=== PATIENT | female | born 1960 | race Hispanic/Latino ===

== ENCOUNTER 2017-11-27 22:09 | Inpatient (IN) | payer OTHER ==
[~2017-11-27] VITALS: Ht 149.9 cm; Wt 38.1 kg
[~2017-11-27 22:09] MED LIST: CLONIDINE HCL0.1 MG PO; EPINEPHRINE HCL SYRINGE ONE; FERROUS SULFAT325 MG PO; FUROSEMIDE40 MG PO; GLIPIZIDE5 MG PO; LANTUS100 UNITS/ SQ; LEVOTHYROXINE75 MCG PO; LISINOPRIL10 MG PO; METOPROLOL SUCC25 MG PO; POTASSIUM CHLO20 ME1 PO; PRAVASTATIN SOD20 MG PO; SODIUM BICARBONATE 8.4% INJ 50 ML SYR ONE; SODIUM CHLORIDE 0.9% 1000 ML BAG ONE; ULTRAM 50MG50 MG PO
[2017-11-27] MEDS ORDERED: PANTOPRAZOLE 40 MG 10ML VIAL IV STA (22:32)
[2017-11-27] MEDS ORDERED: SODIUM CHLORIDE 0.9% 1000ML 1,000 ML IV STA (22:32)
[2017-11-27 22:57] LABS: BASOPHILS % 0.1 % (0.0-1.0); EOSINOPHILS % 0.1 % (0.0-6.0); HEMATOCRIT 29.9 % (34.2-44.1); HEMOGLOBIN 9.5 g/dL (12.0-16.0); LYMPHOCYTES # (AUTO) 6.1 (1.0-3.2); LYMPHOCYTES % 33.8 % (18.0-39.1); MEAN CORPUSCULAR HEMOGLOBIN 30.4 pg (28-32); MEAN CORPUSCULAR HGB CONC 31.8 g/dL (31-35); MEAN CORPUSCULAR VOLUME 95.5 fL (81-99); MONOCYTES # (AUTO) 0.8 (0.2-0.8); MONOCYTES % 4.2 % (4.4-11.3); NEUTROPHILS % 61.1 % (38.7-80.0); PLATELET COUNT 214 x10e3/uL (140-360); RED BLOOD COUNT 3.13 x10e6/uL (3.6-5.1)
[2017-11-27 23:07] LABS: INR 1.42; PROTHROMBIN TIME 16.3 seconds (11.9-14.5)
[2017-11-27 23:08] LABS: PARTIAL THROMBOPLASTIN TIME 53.3 seconds (23.8-35.5)
[2017-11-27 23:19] LABS: ALANINE AMINOTRANSFERASE 404 IU/L (0-55); ALBUMIN 2.1 g/dL (3.5-5.0); ALBUMIN/GLOBULIN RATIO 0.4 (0.8-2.0); ALKALINE PHOSPHATASE 576 IU/L (40-150); AMYLASE 26 U/L (25-125); BLOOD UREA NITROGEN 7 mg/dL (7-26); BUN/CREATININE RATIO 10 (6-25); CALCIUM 8.5 mg/dL (8.4-10.2); CARBON DIOXIDE 25 mmol/L (22-29); CHLORIDE 99 mmol/L (98-107); CREATINE KINASE 33 IU/L (29-168); CREATININE, SERUM 0.73 mg/dL (0.57-1.11); EST GLOMERULAR FILTRATION RATE > 60 ML/MIN (60-); GLUCOSE 118 mg/dL (74-118); LIPASE 13 U/L (8-78); MAGNESIUM 1.6 MG/DL (1.3-2.1); SODIUM 136 mmol/L (136-145)
[2017-11-27 23:31] LABS: THYROID STIMULATING HORMONE 22.865 uIU/mL (0.350-4.940)
[2017-11-27 23:40] LABS: ANISOCYTOSIS SLIGHT; BAND NEUTROPHILS % (MANUAL) 4 %; LYMPHOCYTES % (MANUAL) 26 % (19-48); MONOCYTES % (MANUAL) 4 % (3.4-9.0); NEUTROPHILS % (MANUAL) 66 % (40-74); PLATELET ESTIMATE ADEQUATE; RBC MORPHOLOGY COMMENT NORMAL
[2017-11-27 23:41] LABS: PLATELET MORPHOLOGY COMMENT FEW LARGE
[2017-11-27 23:48] LABS: B-TYPE NATRIURETIC PEPTIDE2 1402.6 pg/mL (0-100)
[2017-11-27] MEDS ORDERED: CEFEPIME HCL 2 GM VIAL IV STA (23:56)
[2017-11-27] MEDS ORDERED: PIPERACILLIN/TAZO 2.25 GM 50 ML IV STA (23:56)
[2017-11-28] VITALS (69 sets, daily range): BP systolic 109–157; BP diastolic 63–100
--- NOTE | 2017-11-28 01:22 | Diagnostic Imaging Report ---
EXAMINATION: CHEST SINGLE (PORTABLE) INDICATION: Intubated. COMPARISON: 01/07/2016 FINDINGS: TUBES and LINES: Tracheostomy tube, pacemaker and right IJ dual-lumen dialysis catheter are present. LUNGS: Confluent airspace disease in the right hemithorax with air bronchogram. There are bibasilar atelectasis. There is perihilar interstital opacities, consistent with interstitial edema. PLEURA: Small bilateral pleural effusions. HEART AND MEDIASTINUM: The cardiomediastinal silhouette is unremarkable. BONES AND SOFT TISSUES: No acute osseous lesion. Soft tissues are unremarkable. UPPER ABDOMEN: No free air under the diaphragm. IMPRESSION: 1. Findings are compatible with multifocal infection predominantly involving the right hemithorax. 2. Fluid overload. Signed by: Dr. Zana Pollard M.D. on 11/28/2017 1:19 AM
[2017-11-28] MEDS: VANCOMYCIN 1GM/NS 250 ML 250 ML IV STA ×2 (01:29→01:30)
--- NOTE | 2017-11-28 01:49 | Diagnostic Imaging Report ---
EXAMINATION: Head CT HISTORY: Cardiac arrest COMPARISON: None. TECHNIQUE: Multidetector axial images were obtained without contrast from the foramen magnum to the vertex . The images were reconstructed using brain and bone algorithms. Thin section brain images were reformatted into coronal and sagittal planes. Intravenous contrast: None. Motion/streaking artifact limits the evaluation of the skull base and posterior cranial fossa. FINDINGS: Parenchyma: 1. Few scattered white matter hypodensities, most likely nonspecific chronic microvascular ischemic changes. Otherwise no areas of abnormal density. 2. No mass or hemorrhage. No CT evidence of acute territorial vascular insult. Extra-axial spaces:No abnormal density. No extra-axial fluid collections Brain volume: Mild generalized brain volume loss, slightly more than would be suspected for patient's age. Ventricles: No hydrocephalus or displacement. Arteries: No density suggestive of thrombus. Dural sinuses: No abnormal density. Extra-axial spaces: No abnormal density. Foramen magnum: No mass, Chiari malformation, or basilar invagination. Sella: No obvious mass. Paranasal/mastoid sinuses: Partial opacification of the right sphenoid sinus with air-fluid level. Partial opacification of the right mastoid are cells. Skull/Scalp: No lytic or blastic lesions. No fractures. IMPRESSION: 1. No acute intracranial hemorrhage or cortical infarct. 2. Mild generalized brain volume loss. 3. Minimal chronic changes. Signed by: Dr. Kelly Starkey M.D. on 11/28/2017 1:45 AM
--- OUTSIDE RECORDS SUMMARY | 2017-11-28 02:59 | XMS REPORT ---
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 Allergies, Adverse Reactions, Alerts This patient has no known allergies or adverse reactions. Medications This patient has no known medications. Results Test Description Test Time Test Comments Text Results Atomic Results Result Comments CHEST SINGLE (PORTABLE) [place] [address] Patient Name: TONNY GAMBOA MR #: [id number] : 1960 Age/Sex: 57/F Req #: [id number] Adm Physician: Ordered by: LITA LENNON MD Report #: [id number] Location: ER Room/Bed: Procedure: [id number] DX/CHEST SINGLE (PORTABLE) Exam Date: 11/28/17 Exam Time: 0469 REPORT STATUS: Signed EXAMINATION: CHEST SINGLE (PORTABLE) INDICATION: Intubated. COMPARISON: 01/07/2016 FINDINGS: TUBES and LINES: Tracheostomy tube , pacemaker and right IJ dual-lumen dialysis catheter are present. LUNGS : Confluent airspace disease in the right hemithorax with air bronchogram. There are bibasilar atelectasis. There is perihilar interstital opacities, consistent with interstitial edema. PLEURA: Small bilateral pleural effusions. HEART AND MEDIASTINUM: The cardiomediastinal silhouette is unremarkable. BONES AND SOFT TISSUES: No acute osseous lesion. Soft tissues are unremarkable. UPPER ABDOMEN: No free air under the diaphragm. IMPRESSION: 1. Findings are compatible with multifocal infection predominantly involving the right hemithorax. 2. Fluid overload. Signed by: Dr. Zana Pollard M.D. on 11/28/2017 1:19 AM Dictated By : ZANA VIDALES MD 8 Transcribed By: MEDHAT on 11/28/17118 COPY TO: LITA LENNON MD CT BRAIN WO [place] [address] Patient Name: TONNY GAMBOA MR #: [id number] : 1960 Age/Sex: 57/F Req # : [id number] Adm Physician: Ordered by: LITA LENNON MD Report #: [id number] Location: ER Room/Bed: Procedure: [id number] CT/CT BRAIN WO Exam Date: 11/28/17 Exam Time: 9 REPORT STATUS: Signed EXAMINATION: Head CT HISTORY: Cardiac arrest COMPARISON: None. TECHNIQUE: Multidetector axial images were obtained without contrast from the foramen magnum to the vertex . The images were reconstructed using brain and bone algorithms. Thin section brain images were reformatted into coronal and sagittal planes. Intravenous contrast: None. Motion/streaking artifact limits the evaluation of the skull base and posterior cranial fossa. FINDINGS: Parenchyma: 1. Few scattered white matter hypodensities, most likely nonspecific chronic microvascular ischemic changes. Otherwise no areas of abnormal density. 2. No mass or hemorrhage. No CT evidence of acute territorial vascular insult. Extra-axial spaces:No abnormal density. No extra-axial fluid collections Brain volume: Mild generalized brain volume loss, slightly more than would be suspected for patient's age. Ventricles: No hydrocephalus or displacement. Arteries: No density suggestive of thrombus. Dural sinuses: No abnormal density. Extra-axial spaces : No abnormal density. Foramen magnum: No mass, Chiari malformation, or basilar invagination. Sella: No obvious mass. Paranasal/ mastoid sinuses: Partial opacification of the right sphenoid sinus with air- fluid level. Partial opacification of the right mastoid are cells. Skull/Scalp: No lytic or blastic lesions. No fractures. IMPRESSION: 1. No acute intracranial hemorrhage or cortical infarct. 2. Mild generalized brain volume loss. 3. Minimal chronic changes. Signed by: Dr. Kelly Starkey M.D. on 11/28/2017 1:45 AM Dictated By: KELLY STARKEY MD 4 Transcribed By: MEDHAT on 11/28/17144 COPY TO: LITA LENNON MD
[2017-11-28] MEDS ORDERED: NOREPINEPHRINE INJ 4MG/4ML 8 MG in DEXTROSE 5% 250ML 250 ML IV PRN (04:15)
[2017-11-28 05:04] LABS: ABG PCO2 56 mmHg (41-51); ABG PH 7.31 (7.31-7.41)
[2017-11-28 05:05] LABS: ABG HCO3 28 mmol/L (23-28); ABG PO2 33 mmHg (80-105)
[2017-11-28] MEDS: MORPHINE SULFATE 2 MG/ML SYR IV PRN (05:15)
[2017-11-28 05:25] LABS: BASOPHILS # (AUTO) 0.1 (0.0-0.1); BASOPHILS % 0.7 % (0.0-1.0); HEMATOCRIT 25.1 % (34.2-44.1); HEMOGLOBIN 8.2 g/dL (12.0-16.0); LYMPHOCYTES # (AUTO) 0.9 (1.0-3.2); LYMPHOCYTES % 8.8 % (18.0-39.1); MEAN CORPUSCULAR HEMOGLOBIN 29.5 pg (28-32); MEAN CORPUSCULAR HGB CONC 32.7 g/dL (31-35); MEAN CORPUSCULAR VOLUME 90.3 fL (81-99); MONOCYTES # (AUTO) 0.4 (0.2-0.8); MONOCYTES % 4.1 % (4.4-11.3); NEUTROPHILS # (AUTO) 9.1 (2.1-6.9); NEUTROPHILS % 85.8 % (38.7-80.0); PLATELET COUNT 243 x10e3/uL (140-360); RED BLOOD COUNT 2.78 x10e6/uL (3.6-5.1); RED CELL DISTRIBUTION WIDTH 15.5 % (11.7-14.4)
[2017-11-28] MEDS: PIPERACILLIN/TAZO 2.25 GM 50 ML IV SCH ×3 (06:00→22:00)
[2017-11-28 06:09] LABS: ALANINE AMINOTRANSFERASE 351 IU/L (0-55); ALBUMIN 1.9 g/dL (3.5-5.0); ALBUMIN/GLOBULIN RATIO 0.4 (0.8-2.0); ALKALINE PHOSPHATASE 513 IU/L (40-150); ANION GAP 10.4 mmol/L (8-16); BLOOD UREA NITROGEN 12 mg/dL (7-26); BUN/CREATININE RATIO 15 (6-25); CALCIUM 8.2 mg/dL (8.4-10.2); CARBON DIOXIDE 27 mmol/L (22-29); CHLORIDE 103 mmol/L (98-107); CREATININE, SERUM 0.81 mg/dL (0.57-1.11); EST GLOMERULAR FILTRATION RATE > 60 ML/MIN (60-); GLUCOSE 110 mg/dL (74-118); MAGNESIUM 1.3 MG/DL (1.3-2.1); SODIUM 138 mmol/L (136-145)
[2017-11-28 06:10] LABS: POTASSIUM 2.4 mmol/L (3.5-5.1)
[2017-11-28 06:16] LABS: CREATINE KINASE MB 4.5 ng/mL (0-5.0)
--- NOTE | 2017-11-28 06:49 | Diagnostic Imaging Report ---
EXAMINATION: CHEST SINGLE (PORTABLE) INDICATION: Pneumonia. ESRD. COMPARISON: 01/07/2016 FINDINGS: TUBES and LINES: Tracheostomy tube, pacemaker and right IJ dual-lumen dialysis catheter are present. LUNGS: Confluent airspace disease in the right hemithorax with air bronchogram slightly improved. There are bibasilar atelectasis. There is perihilar interstitial opacities, consistent with improving interstitial edema. PLEURA: Small bilateral pleural effusions. HEART AND MEDIASTINUM: The cardiomediastinal silhouette is unremarkable. BONES AND SOFT TISSUES: No acute osseous lesion. Soft tissues are unremarkable. UPPER ABDOMEN: No free air under the diaphragm. IMPRESSION: 1. Findings are compatible with slight improvement in multifocal infection predominantly involving the right hemithorax. 2. Fluid overload is improving as well Signed by: Dr. Zana Pollard M.D. on 11/28/2017 6:46 AM
[2017-11-28 07:39] LABS: BAND NEUTROPHILS % (MANUAL) 4 %; LYMPHOCYTES % (MANUAL) 13 % (19-48); METAMYELOCYTES % (MANUAL) 1 % (0-0); MONOCYTES % (MANUAL) 3 % (3.4-9.0); NEUTROPHILS % (MANUAL) 79 % (40-74)
[2017-11-28 07:42] LABS: ANISOCYTOSIS SLIGHT; PLATELET ESTIMATE ADEQUATE; RBC MORPHOLOGY COMMENT NORMAL
[2017-11-28 07:43] LABS: HYPOCHROMASIA MODERATE; PLATELET MORPHOLOGY COMMENT FEW GIANT; POIKILOCYTOSIS SLIGHT
[2017-11-28 08:16] LABS: ANION GAP 8.2 mmol/L (8-16); BLOOD UREA NITROGEN 13 mg/dL (7-26); BUN/CREATININE RATIO 17 (6-25); CALCIUM 7.4 mg/dL (8.4-10.2); CARBON DIOXIDE 26 mmol/L (22-29); CHLORIDE 107 mmol/L (98-107); CREATININE, SERUM 0.77 mg/dL (0.57-1.11); EST GLOMERULAR FILTRATION RATE > 60 ML/MIN (60-); GLUCOSE 86 mg/dL (74-118); MAGNESIUM 1.2 MG/DL (1.3-2.1); SODIUM 139 mmol/L (136-145)
[2017-11-28 08:17] LABS: POTASSIUM 2.2 mmol/L (3.5-5.1)
[2017-11-28] MEDS ORDERED: POTASSIUM CHLORIDE 20MEQ/100ML 200 ML IV ONE (08:30)
[2017-11-28] MEDS ORDERED: POTASSIUM CHLORIDE 20MEQ/100ML 200 ML ONE (08:36)
--- NOTE | 2017-11-28 08:41 | Consultation ---
DATE OF CONSULTATION: November 28, 2017 CARDIOLOGY CONSULTATION CHIEF COMPLAINT: The patient is a 57-year-old with at home arrest. HISTORY OF PRESENT ILLNESS: The patient is a 57-year-old, on dialysis with a home tracheostomy, who was recently at [place] for 3 months. The patient apparently became unresponsive at home and CPR was initiated and paramedics arrived and patient was found to be pulseless. The patient was ventilated with Ambu bag and oxygen was administered and chest compressions were started and the patient then subsequently regained pulse and was taken to the emergency room at [facility]. PAST MEDICAL HISTORY: Significant for: 1. End-stage renal disease. 2. Chronic respiratory failure. The patient has a tracheostomy at home. 3. The patient has a permanent pacemaker. 4. The patient had a previous colostomy. 5. The patient has a PEG tube. MEDICATIONS AT HOME: Include pravastatin, metoprolol, lisinopril, Synthroid, glipizide, Lasix. SOCIAL HISTORY: The patient is taken care of by the family at home. PHYSICAL EXAMINATION: GENERAL: The patient is an unresponsive female with a permanent tracheostomy. VITAL SIGNS: Include a temperature of 98.6, blood pressure of 132/80, pulse was 86. HEAD, EARS, EYES, NOSE, AND THROAT: The patient's cranium was normocephalic and atraumatic. Extraocular muscles were intact. NECK: There was a tracheostomy present. CHEST: With rhonchi bilaterally. CARDIAC: Demonstrated a normal S1 and S2 with a short 2/6 systolic murmur. ABDOMEN: Demonstrated good bowel sounds. No tenderness. EXTREMITIES: There is no clubbing, no cyanosis, and no edema. NEUROLOGICAL: The patient was completely unresponsive and did not follow any commands, was not moving any extremities. LABS: The patient's EKG demonstrated sinus tachycardia with nonspecific ST and T-wave changes. IMPRESSION: The patient is a 57-year-old with end-stage renal disease, chronic respiratory failure, and a home tracheostomy who had a cardiac arrest at home. The patient was found to be in pulseless electrical activity and was resuscitated. The etiology of the arrest does not appear to be cardiac, suspect it is somehow pulmonary related, possibly a mucous plug or aspiration. The patient will be monitored on telemetry, and an echocardiogram has been ordered. Thank you. Job#: [id number] cc:MD RODOLFO SHEFFIELD MD
[2017-11-28] MEDS: CEFEPIME HCL 2 GM VIAL IV SCH ×2 (12:00→23:47)
[2017-11-28] MEDS ORDERED: MAGNESIUM SULFATE 2GM/50ML 50 ML IV ONE (15:00)
[2017-11-28 15:36] LABS: CREATINE KINASE MB 2.8 ng/mL (0-5.0)
[2017-11-28] MEDS: ONDANSETRON HCL INJ 2 MG/ML VIAL IV PRN (15:49)
--- NOTE | 2017-11-28 16:03 | Consultation ---
DATE OF CONSULTATION: November 28, 2017 RENAL CONSULT Ms. Mandy Anderson is well known to me. She has underlying ATN and dialysis dependent, has been anuric. Had a long hospital course at [facility]. Has a tracheostomy, PEG tube. Has a permanent pacemaker. She was found unresponsive at home. CPR was given. Patient was subsequently brought here. She is now extubated, awake, alert, lying supine, no apparent distress. Laboratory tests today show hemoglobin 8.2, white count 10.5, potassium 2.2, bicarbonate 26, creatinine 0.77 with a magnesium 1.2. SOCIAL HISTORY: Does not smoke or drink. Has a very supportive family. FAMILY HISTORY: Significant for diabetes. PAST HISTORY: History of type 2 diabetes with end-organ damage, underlying diabetic nephropathy, had underlying CKD-4 before she developed acute tubular necrosis and ended up on dialysis. PHYSICAL EXAMINATION GENERAL: Awake, alert, a thin-built female lying supine, following commands, no apparent distress. VITAL SIGNS: Blood pressure 115/56, pulse rate 77, afebrile. HEAD AND NECK: Cornea clear. Tracheostomy noted. LUNGS: Rales and rhonchi right side. Left lung field relatively clear. HEART: S1 and S2 audible. ABDOMEN: Soft. LOWER EXTREMITIES: No edema. IMPRESSION/PLAN: Acute tubular necrosis, dialysis dependent. I repeated labs. Serum creatinine normal. Will place a Carrion catheter. Replace potassium. Hypomagnesemic. Will replace magnesium. Current volume status stable. No evidence of fluid overload. Please see orders. Job#: [id number] EV
--- NOTE | 2017-11-28 21:27 | Consultation ---
DATE OF CONSULTATION: November 28, 2017 PULMONARY CONSULTATION REASON FOR THE CONSULT: ICU management. HPI: Ms. Anderson is a 57-year-old female very well known to me for long hospital stay at [facility]. Patient had 3 cardiac arrests at [facility] and 2 episodes of respiratory failure. She was diagnosed with nephrotic syndrome. Patient underwent tracheostomy, PEG tube placement, permanent pacemaker at [facility]. She was found unresponsive at home, CPR was done, and she was brought here. She is now awake, alert, following commands. She is on tracheostomy, on a ventilator support. She denies any complaints of nausea, vomiting. She has chest discomfort from CPR. REVIEW OF SYSTEMS: GENERAL: Denies any fever or chills. HEAD: Denies any head trauma. ENT: Denies any earache. CVS: Denies any chest discomfort. The rest of the review of systems is negative except as in HPI. PAST MEDICAL HISTORY: Type 2 diabetes, end-stage renal disease, nephrotic syndrome, hypertension, permanent pacemaker, colostomy, and PEG tube. PAST SURGICAL HISTORY: Tracheostomy. FAMILY AND SOCIAL HISTORY: She is currently living at home. She had a prolonged stay at [facility]. She does not smoke, does not drink. PHYSICAL EXAMINATION: VITAL SIGNS: Temperature 97.7, pulse of 90, blood pressure 157/89, respiratory rate of 18, O2 sat 94%. She is on ventilator, tracheostomy. HEENT: Head atraumatic, normocephalic. Pupils reactive. CHEST: Clear to auscultation bilaterally. No wheezing. Tenderness on the anterior chest wall. ABDOMEN: Soft, nontender. EXTREMITIES: No pedal edema. NEUROLOGICAL: Awake and alert. LABORATORY DATA: White count of 17,000 when she came in, now it is 10,000; hemoglobin 8.2; platelets 243,000. Chemistry: Sodium 139, potassium 2.2, BUN 13, creatinine 0.7. AST 1006 and ALT 351. Magnesium 1.3. Troponin 0.287, it was 0.332. Chest x-ray is showing evidence of right-sided alveolar infiltrate, likely pulmonary edema. ASSESSMENT: Ms. Anderson is a 57-year-old female who had multiple cardiac arrests, this was the fourth one, 3 cardiac arrests and respiratory failure at [facility], underwent tracheostomy, permanent pacemaker placement, percutaneous endoscopic gastrostomy tube placement. Patient is doing well. She is awake and alert now, she is on ventilator support. Chest x-ray with possibility of aspiration pneumonia. CURRENT PROBLEMS: 1. Awlwm-wh-nyejimc respiratory failure. 2. Nephrotic syndrome resulting in end-stage renal disease. 3. Debility and weakness. 4. Tracheostomy. 5. Possible aspiration pneumonitis. PLAN: 1. Agree with IV Zosyn. 2. She is not on any vasopressors. 3. Wean the ventilator in a.m. 4. Continue the dialysis per nephrology recommendation. Thank you for this consult. Job#: [id number]
[2017-11-28 22:16] LABS: CREATINE KINASE MB 2.6 ng/mL (0-5.0)
[2017-11-28] MEDS ORDERED: SODIUM CHLORIDE 0.9% 250ML 250 ML ONE (23:41)
[2017-11-29] VITALS (100 sets, daily range): BP systolic 88–179; BP diastolic 59–101
[2017-11-29] MEDS: MORPHINE SULFATE 2 MG/ML SYR IV PRN ×2 (01:21→23:21)
[2017-11-29] MEDS: PIPERACILLIN/TAZO 2.25 GM 50 ML IV SCH ×3 (05:36→21:42)
[2017-11-29 06:10] LABS: INR 1.37; PROTHROMBIN TIME 15.9 seconds (11.9-14.5)
[2017-11-29 06:11] LABS: PARTIAL THROMBOPLASTIN TIME 42.2 seconds (23.8-35.5)
[2017-11-29 06:16] LABS: CHOL/HDL RATIO 9.9 (3.0-3.6)
[2017-11-29] MEDS: ONDANSETRON HCL INJ 2 MG/ML VIAL IV PRN ×4 (08:00→23:21)
[2017-11-29 08:25] LABS: ANION GAP 14.4 mmol/L (8-16); BLOOD UREA NITROGEN 26 mg/dL (7-26); BUN/CREATININE RATIO 20 (6-25); CALCIUM 8.4 mg/dL (8.4-10.2); CARBON DIOXIDE 23 mmol/L (22-29); CHLORIDE 105 mmol/L (98-107); CREATININE, SERUM 1.33 mg/dL (0.57-1.11); EST GLOMERULAR FILTRATION RATE 41 ML/MIN (60-); POTASSIUM 3.4 mmol/L (3.5-5.1); SODIUM 139 mmol/L (136-145)
[2017-11-29 08:26] LABS: PHOSPHORUS < 0.7 MG/DL (2.3-4.7)
[2017-11-29 08:29] LABS: GLUCOSE 18 mg/dL (74-118)
[2017-11-29] MEDS ORDERED: DEXTROSE 50% SYRINGE 50 ML IV ONE (08:38)
[2017-11-29] MEDS: MUPIROCIN 2% OINT 22 GM TUBE TOP SCH (09:07)
[2017-11-29] MEDS: COLLAGENASE OINTMENT 30 GM TUBE TP SCH (09:07)
[2017-11-29 10:49] LABS: CLARITY,URINE CLOUDY (CLEAR); COLOR,URINE YELLOW (YELLOW); KETONES,URINE TRACE (NEGATIVE); LEUKOCYTE ESTERASE ,URINE 2+ (NEGATIVE); NITRITE,URINE NEGATIVE (NEGATIVE); PROTEIN,URINE DIPSTICK 2+ (NEGATIVE)
[2017-11-29 10:50] LABS: BILIRUBIN,URINE NEGATIVE (NEGATIVE); URINE UROBILINOGEN 0.2 mg/dL (0.2 - 1)
[2017-11-29 10:59] LABS: BACTERIA,URINE FEW /HPF; EPITHELIAL CELLS,URINE FEW /LPF; MUCUS,URINE RARE (RARE); WBC,URINE (MAN) 21-50 /HPF (0-5)
[2017-11-29] MEDS ORDERED: VANCOMYCIN 1GM/NS 250 ML 250 ML IV SCH (11:00)
--- NOTE | 2017-11-29 11:40 | Consultation ---
DATE OF CONSULTATION: November 29, 2017 REASON FOR CONSULTATION: Sepsis, UTI. HISTORY OF PRESENT ILLNESS: This patient, who is a 57-year-old female, known to me from before, has history of end-stage renal disease, chronic respiratory failure, coronary artery disease, status post pacemaker, colostomy, PEG tube placement, hypercholesterolemia, hypertension. The patient comes in from home with cardiac arrest. She was found unresponsive. She had CPR initiated, and -- was called. The patient had been pulseless for unknown time. She was ventilated with an Ambu bag and chest compression, then transferred here. She is currently extubated but her urine is pus-like drainage, so infectious disease was consulted. The patient does not really provide any meaningful information. History was taken mainly from the chart. There is no family at the present time. This patient has a history of chronic renal disease, anuria, multiple cardiac arrests before, tracheostomy, PEG tube placement permanent pacer. The patient was admitted on November 28, and infectious disease was consulted today. Currently she is off the vent and back on a trach. PAST MEDICAL HISTORY: Significant for diabetes mellitus type 2, end-stage renal disease on hemodialysis, nephrotic syndrome, hypertension, arrhythmia status post pacemaker, colostomy, PEG tube placement. PAST SURGICAL HISTORY: Tracheostomy and as above. ALLERGIES: NKA. SOCIAL HISTORY: Currently from [place] [facility]. No smoking, drug abuse or alcohol abuse. FAMILY HISTORY: Hypertension. REVIEW OF SYSTEMS: Could not be obtained. LABS: Her blood cultures are growing gram-positive cocci. Her white count on admission was 17.9, hemoglobin 9.5, hematocrit 29. Sodium 139, potassium 3.4, creatinine 1.33. MEDICATION LIST: She is on Santyl, Zofran, Zosyn and cefepime. PHYSICAL EXAMINATION GENERAL: She is noncommunicative. VITALS: Stable. Temperature 100.1. HEENT: Normocephalic. NECK: Supple. CHEST: A few rhonchi bilaterally. COR: S1 and S2. ABDOMEN: Soft. Bowel sounds present. No tenderness. EXTREMITIES: No edema. IMPRESSION 1. Sepsis on admission. Bacteremia, gram-positive cocci. Will put her on vancomycin 1 dose after each hemodialysis. 2. Urinary tract infection, pyelonephritis. Await urine culture and sensitivity. 3. Status post cardiac arrest. 4. Coronary artery disease. 5. Heart failure. 6. Chronic kidney disease. 7. Will follow. Job#: [id number] MH
[2017-11-29] MEDS ORDERED: DEXTROSE 50% SYRINGE 50 ML IV PRN (12:00)
[2017-11-29] MEDS: CEFEPIME HCL 2 GM VIAL IV SCH ×2 (12:25→23:09)
[2017-11-29 16:24] LABS: ABG HCO3 22 mmol/L (23-28); ABG PCO2 46 mmHg (41-51); ABG PH 7.29 (7.31-7.41); ABG PO2 115 mmHg (80-105)
[2017-11-29] MEDS ORDERED: HEPARIN SOD (PORCINE) 1000 UNIT/ML SDV ONE (21:23)
[2017-11-30] VITALS (89 sets, daily range): BP systolic 81–234; BP diastolic 28–217
[2017-11-30] MEDS: PIPERACILLIN/TAZO 2.25 GM 50 ML IV SCH (05:03)
[2017-11-30] MEDS: ONDANSETRON HCL INJ 2 MG/ML VIAL IV PRN (05:03)
[2017-11-30] MEDS: MORPHINE SULFATE 2 MG/ML SYR IV PRN ×2 (05:03→09:34)
[2017-11-30 05:49] LABS: BASOPHILS # (AUTO) 0.1 (0.0-0.1); BASOPHILS % 0.5 % (0.0-1.0); EOSINOPHILS # (AUTO) 0.1 (0.0-0.4); EOSINOPHILS % 0.8 % (0.0-6.0); HEMOGLOBIN 8.9 g/dL (12.0-16.0); LYMPHOCYTES # (AUTO) 1.1 (1.0-3.2); LYMPHOCYTES % 10.4 % (18.0-39.1); MEAN CORPUSCULAR HEMOGLOBIN 29.9 pg (28-32); MEAN CORPUSCULAR VOLUME 90.6 fL (81-99); MONOCYTES # (AUTO) 0.5 (0.2-0.8); NEUTROPHILS # (AUTO) 8.4 (2.1-6.9); NEUTROPHILS % 82.4 % (38.7-80.0); PLATELET COUNT 201 x10e3/uL (140-360); RED BLOOD COUNT 2.98 x10e6/uL (3.6-5.1); RED CELL DISTRIBUTION WIDTH 16.3 % (11.7-14.4)
[2017-11-30 06:11] LABS: ANION GAP 10.2 mmol/L (8-16); BLOOD UREA NITROGEN 14 mg/dL (7-26); BUN/CREATININE RATIO 16 (6-25); CALCIUM 8.1 mg/dL (8.4-10.2); CARBON DIOXIDE 28 mmol/L (22-29); CHLORIDE 100 mmol/L (98-107); CREATININE, SERUM 0.88 mg/dL (0.57-1.11); EST GLOMERULAR FILTRATION RATE > 60 ML/MIN (60-); GLUCOSE 152 mg/dL (74-118); POTASSIUM 3.2 mmol/L (3.5-5.1); SODIUM 135 mmol/L (136-145)
[2017-11-30] MEDS ORDERED: POTASSIUM CHLORIDE 20MEQ/15ML UDC NG ONE (07:15)
[2017-11-30] MEDS: COLLAGENASE OINTMENT 30 GM TUBE TP SCH (08:40)
[2017-11-30] MEDS: MUPIROCIN 2% OINT 22 GM TUBE TOP SCH (08:40)
[2017-11-30] MEDS: CEFEPIME HCL 2 GM VIAL IV SCH (12:41)
[2017-11-30] MEDS ORDERED: MEROPENEM 500MG 500 MG in SODIUM CHLORIDE 0.9% 50ML 50 ML IV SCH (13:30)
[2017-11-30] MEDS ORDERED: SODIUM BICARBONATE 8.4% INJ 50 ML SYR ONE (13:44)
[2017-11-30] MEDS ORDERED: EPINEPHRINE HCL SYRINGE ONE (13:44)
[2017-11-30] MEDS ORDERED: CALCIUM CHLORIDE 10% 1.36 MEQ/ML 10ML SYR IV ONE (13:44)
[2017-11-30] MEDS: MEROPENEM 500 MG VIAL IV SCH (13:54)
[2017-11-30] MEDS: FLUCONAZOLE 100 MG/NS 50 ML 50 ML IV SCH (13:58)
[2017-11-30] MEDS: NOREPINEPHRINE INJ 4MG/4ML 8 MG in DEXTROSE 5% 250ML 250 ML IV SCH (17:18)
[2017-11-30 17:31] LABS: ANION GAP 11.1 mmol/L (8-16); CALCIUM 9.8 mg/dL (8.4-10.2); CREATININE, SERUM 1.28 mg/dL (0.57-1.11); POTASSIUM 4.1 mmol/L (3.5-5.1)
[2017-11-30 17:32] LABS: ABG PH 7.48 (7.31-7.41)
[2017-11-30 17:33] LABS: ABG HCO3 29 mmol/L (23-28); ABG PCO2 39 mmHg (41-51); ABG PO2 354 mmHg (80-105)
[2017-11-30 20:52] LABS: ABG HCO3 25 mmol/L (23-28); ABG PCO2 35 mmHg (41-51); ABG PH 7.46 (7.31-7.41); ABG PO2 201 mmHg (80-105)
[2017-12-01] VITALS (139 sets, daily range): BP systolic 60–187; BP diastolic 38–104
[2017-12-01 05:55] LABS: BASOPHILS # (AUTO) 0.1 (0.0-0.1); BASOPHILS % 0.4 % (0.0-1.0); EOSINOPHILS % 0.1 % (0.0-6.0); LYMPHOCYTES # (AUTO) 1.7 (1.0-3.2); LYMPHOCYTES % 11.4 % (18.0-39.1); MEAN CORPUSCULAR HEMOGLOBIN 29.9 pg (28-32); MEAN CORPUSCULAR HGB CONC 31.7 g/dL (31-35); MEAN CORPUSCULAR VOLUME 94.2 fL (81-99); MONOCYTES # (AUTO) 0.8 (0.2-0.8); MONOCYTES % 5.2 % (4.4-11.3); NEUTROPHILS # (AUTO) 12.4 (2.1-6.9); NEUTROPHILS % 81.7 % (38.7-80.0); PLATELET COUNT 200 x10e3/uL (140-360); RED BLOOD COUNT 2.41 x10e6/uL (3.6-5.1); RED CELL DISTRIBUTION WIDTH 16.5 % (11.7-14.4)
[2017-12-01 06:15] LABS: HEMATOCRIT 22.7 % (34.2-44.1); HEMOGLOBIN 7.2 g/dL (12.0-16.0)
[2017-12-01 06:24] LABS: ALBUMIN 1.7 g/dL (3.5-5.0); ALBUMIN/GLOBULIN RATIO 0.4 (0.8-2.0); ANION GAP 16.3 mmol/L (8-16); CALCIUM 9.3 mg/dL (8.4-10.2); CREATININE, SERUM 1.54 mg/dL (0.57-1.11); POTASSIUM 4.3 mmol/L (3.5-5.1)
[2017-12-01] MEDS ORDERED: SODIUM CHLORIDE 0.9% 250ML 250 ML IV ONE (06:30)
--- NOTE | 2017-12-01 07:05 | Diagnostic Imaging Report ---
EXAMINATION: CHEST SINGLE (PORTABLE) INDICATION: CHF and pneumonia COMPARISON: 11/28/2017 FINDINGS: TUBES and LINES: Tracheostomy tube, pacemaker and right IJ dual-lumen dialysis catheter are present. LUNGS: Continue to improve confluent opacity in the right hemithorax. There are bibasilar atelectasis. There is perihilar interstitial opacities, consistent with improving interstitial edema. PLEURA: Small bilateral pleural effusions. HEART AND MEDIASTINUM: The cardiomediastinal silhouette is unremarkable. BONES AND SOFT TISSUES: No acute osseous lesion. Soft tissues are unremarkable. UPPER ABDOMEN: No free air under the diaphragm. IMPRESSION: 1. Findings are compatible with slight improvement in multifocal infection predominantly involving the right hemithorax. 2. Near resolution of fluid overload. Signed by: Dr. Zana Pollard M.D. on 12/01/2017 7:01 AM
[2017-12-01] MEDS: PANTOPRAZOLE SOD 40 MG TABEC PO SCH (07:30)
[2017-12-01] MEDS: COLLAGENASE OINTMENT 30 GM TUBE TP SCH (09:47)
[2017-12-01] MEDS: MUPIROCIN 2% OINT 22 GM TUBE TOP SCH (09:47)
[2017-12-01 11:05] LABS: BAND NEUTROPHILS % (MANUAL) 11 %; LYMPHOCYTES % (MANUAL) 8 % (19-48); NEUTROPHILS % (MANUAL) 81 % (40-74); PLATELET ESTIMATE ADEQUATE; PLATELET MORPHOLOGY COMMENT FEW LARGE; RBC MORPHOLOGY COMMENT NORMAL
[2017-12-01] MEDS: FLUCONAZOLE 100 MG/NS 50 ML 50 ML IV SCH (13:15)
--- NOTE | 2017-12-01 13:38 | Diagnostic Imaging Report ---
EXAM: US ABDOMINAL WALL NON-VAS INDICATION: \S\drainage from around PEG site COMPARISON: None TECHNIQUE: Transverse and sagittal images were performed of the mid abdominal wall at the level of the PEG tube. FINDINGS: Mild soft tissue swelling of the abdominal wall surrounding the PEG tube without fluid collections or abscess. IMPRESSION: As above. Signed by: Dr. María Clark M.D. on 12/01/2017 1:35 PM
[2017-12-01] MEDS: MEROPENEM 500 MG VIAL IV SCH (13:40)
[2017-12-01] MEDS: NOREPINEPHRINE INJ 4MG/4ML 8 MG in DEXTROSE 5% 250ML 250 ML IV SCH (16:45)
[2017-12-01 21:18] LABS: BASOPHILS # (AUTO) 0.1 (0.0-0.1); BASOPHILS % 0.4 % (0.0-1.0); EOSINOPHILS % 0.3 % (0.0-6.0); HEMATOCRIT 23.5 % (34.2-44.1); HEMOGLOBIN 8.1 g/dL (12.0-16.0); LYMPHOCYTES # (AUTO) 1.8 (1.0-3.2); LYMPHOCYTES % 12.5 % (18.0-39.1); MEAN CORPUSCULAR HEMOGLOBIN 30.8 pg (28-32); MEAN CORPUSCULAR HGB CONC 34.5 g/dL (31-35); MEAN CORPUSCULAR VOLUME 89.4 fL (81-99); MONOCYTES # (AUTO) 0.6 (0.2-0.8); MONOCYTES % 4.3 % (4.4-11.3); NEUTROPHILS # (AUTO) 11.5 (2.1-6.9); NEUTROPHILS % 81.5 % (38.7-80.0); PLATELET COUNT 152 x10e3/uL (140-360); RED BLOOD COUNT 2.63 x10e6/uL (3.6-5.1); RED CELL DISTRIBUTION WIDTH 15.7 % (11.7-14.4)
[2017-12-02] VITALS (86 sets, daily range): BP systolic 64–166; BP diastolic 44–88
[2017-12-02] MEDS ORDERED: INSULIN LISPRO 100 UNIT/1 ML 3ML VIAL SQ SCH (02:15)
[2017-12-02] MEDS ORDERED: DEXTROSE 50% SYRINGE 50 ML IV PRN (02:15)
[2017-12-02] MEDS ORDERED: INSULIN LISPRO 100 UNIT/1 ML 3ML VIAL SQ ONE (02:17)
--- NOTE | 2017-12-02 05:34 | Diagnostic Imaging Report ---
EXAMINATION: CHEST SINGLE (PORTABLE) INDICATION: Pneumonia, on ventilator COMPARISON: 12/01/2017 FINDINGS: TUBES and LINES: Tracheostomy tube, pacemaker and right IJ dual-lumen dialysis catheter are present. LUNGS: Significant improvement confluent opacity in the right hemithorax. There are bibasilar atelectasis. There is perihilar interstitial opacities, consistent with improving interstitial edema. PLEURA: Small bilateral pleural effusions. HEART AND MEDIASTINUM: The cardiomediastinal silhouette is unremarkable. BONES AND SOFT TISSUES: No acute osseous lesion. Soft tissues are unremarkable. UPPER ABDOMEN: No free air under the diaphragm. IMPRESSION: 1. Findings are compatible with continued to improve of multifocal infection predominantly involving the right hemithorax. 2. Persistent mild fluid overload. Signed by: Dr. Zana Pollard M.D. on 12/02/2017 5:30 AM
[2017-12-02] MEDS: INSULIN LISPRO 100 UNIT/1 ML 3ML VIAL SQ SCH ×4 (05:56→23:00)
[2017-12-02 06:16] LABS: BASOPHILS # (AUTO) 0.1 (0.0-0.1); BASOPHILS % 0.4 % (0.0-1.0); EOSINOPHILS # (AUTO) 0.3 (0.0-0.4); EOSINOPHILS % 1.7 % (0.0-6.0); LYMPHOCYTES # (AUTO) 1.8 (1.0-3.2); LYMPHOCYTES % 10.6 % (18.0-39.1); MEAN CORPUSCULAR HEMOGLOBIN 30.7 pg (28-32); MEAN CORPUSCULAR HGB CONC 35.2 g/dL (31-35); MEAN CORPUSCULAR VOLUME 87.3 fL (81-99); MONOCYTES # (AUTO) 0.7 (0.2-0.8); NEUTROPHILS # (AUTO) 14.1 (2.1-6.9); NEUTROPHILS % 82.4 % (38.7-80.0); PLATELET COUNT 148 x10e3/uL (140-360); RED BLOOD COUNT 2.44 x10e6/uL (3.6-5.1); RED CELL DISTRIBUTION WIDTH 15.6 % (11.7-14.4)
[2017-12-02 06:43] LABS: HEMATOCRIT 21.3 % (34.2-44.1); HEMOGLOBIN 7.5 g/dL (12.0-16.0)
[2017-12-02 06:45] LABS: ALBUMIN 1.5 g/dL (3.5-5.0); ALBUMIN/GLOBULIN RATIO 0.3 (0.8-2.0); ANION GAP 13.5 mmol/L (8-16); CALCIUM 8.9 mg/dL (8.4-10.2); CREATININE, SERUM 2.02 mg/dL (0.57-1.11); POTASSIUM 3.5 mmol/L (3.5-5.1)
[2017-12-02] MEDS: COLLAGENASE OINTMENT 30 GM TUBE TP SCH (09:04)
[2017-12-02] MEDS: MUPIROCIN 2% OINT 22 GM TUBE TOP SCH (09:04)
[2017-12-02] MEDS: PANTOPRAZOLE SOD 40 MG TABEC PO SCH (09:05)
[2017-12-02 10:41] LABS: EOSINOPHILS % (MANUAL) 1 % (0-7); HYPOCHROMASIA MODERATE; LYMPHOCYTES % (MANUAL) 9 % (19-48); MONOCYTES % (MANUAL) 3 % (3.4-9.0); NEUTROPHILS % (MANUAL) 85 % (40-74); PLATELET ESTIMATE SLIGHTLY DECREASED; PLATELET MORPHOLOGY COMMENT FEW LARGE; SMUDGE CELLS FEW
[2017-12-02 10:42] LABS: ANISOCYTOSIS MODERATE; RBC MORPHOLOGY COMMENT NORMAL
[2017-12-02] MEDS ORDERED: SODIUM CHLORIDE 0.9% 1000ML 2,000 ML ONE (14:21)
[2017-12-02] MEDS ORDERED: ALBUMIN HUMAN 100 ML IV ONE (14:21)
[2017-12-02] MEDS ORDERED: MANNITOL 25% 12.5GM/50ML 100 ML ONE (14:21)
[2017-12-02] MEDS ORDERED: SODIUM CHLORIDE 0.9% 250ML 250 ML ONE (15:14)
[2017-12-02] MEDS: METRONIDAZOLE 500MG/NS 100ML 100 ML IV SCH ×2 (16:21→20:04)
[2017-12-02] MEDS: VANCOMYCIN 750MG/NS 150ML IVPB 150 ML IV SCH (16:22)
[2017-12-02] MEDS: NOREPINEPHRINE INJ 4MG/4ML 8 MG in DEXTROSE 5% 250ML 250 ML IV SCH (17:00)
[2017-12-03] VITALS (77 sets, daily range): BP systolic 85–155; BP diastolic 51–84
[2017-12-03] MEDS: METRONIDAZOLE 500MG/NS 100ML 100 ML IV SCH ×3 (03:15→20:13)
[2017-12-03] MEDS: INSULIN LISPRO 100 UNIT/1 ML 3ML VIAL SQ SCH ×4 (06:01→23:56)
[2017-12-03 06:09] LABS: HEMATOCRIT 28.5 % (34.2-44.1); HEMOGLOBIN 9.9 g/dL (12.0-16.0); MEAN CORPUSCULAR HEMOGLOBIN 31.1 pg (28-32); MEAN CORPUSCULAR HGB CONC 34.7 g/dL (31-35); MEAN CORPUSCULAR VOLUME 89.6 fL (81-99); PLATELET COUNT 131 x10e3/uL (140-360); RED BLOOD COUNT 3.18 x10e6/uL (3.6-5.1); RED CELL DISTRIBUTION WIDTH 15.8 % (11.7-14.4)
[2017-12-03 07:55] LABS: EOSINOPHILS % (MANUAL) 2 % (0-7); LYMPHOCYTES % (MANUAL) 17 % (19-48); MONOCYTES % (MANUAL) 1 % (3.4-9.0); NEUTROPHILS % (MANUAL) 79 % (40-74)
[2017-12-03 07:56] LABS: ANISOCYTOSIS SLIGHT; HYPOCHROMASIA SLIGHT
[2017-12-03 07:57] LABS: RBC MORPHOLOGY COMMENT NORMAL
[2017-12-03 07:58] LABS: PLATELET ESTIMATE SLIGHTLY DECREASED; PLATELET MORPHOLOGY COMMENT FEW LARGE
[2017-12-03 07:59] LABS: POIKILOCYTOSIS SLIGHT; TARGET CELLS FEW
[2017-12-03] MEDS ORDERED: SODIUM CHLORIDE 0.9% 250ML 250 ML IV ONE (08:45)
[2017-12-03] MEDS: COLLAGENASE OINTMENT 30 GM TUBE TP SCH (09:40)
[2017-12-03] MEDS: MUPIROCIN 2% OINT 22 GM TUBE TOP SCH (09:40)
[2017-12-03] MEDS: PANTOPRAZOLE SODIUM 40 MG SUSPDR.PKT PO SCH (10:18)
[2017-12-03] MEDS: NOREPINEPHRINE INJ 4MG/4ML 8 MG in DEXTROSE 5% 250ML 250 ML IV SCH (14:13)
[2017-12-04] VITALS (70 sets, daily range): BP systolic 66–156; BP diastolic 41–83
[2017-12-04] MEDS: METRONIDAZOLE 500MG/NS 100ML 100 ML IV SCH ×3 (04:13→19:23)
[2017-12-04] MEDS: INSULIN LISPRO 100 UNIT/1 ML 3ML VIAL SQ SCH ×4 (06:29→23:20)
[2017-12-04 06:51] LABS: ANION GAP 17.7 mmol/L (8-16); CALCIUM 8.8 mg/dL (8.4-10.2); CREATININE, SERUM 1.88 mg/dL (0.57-1.11); MAGNESIUM 1.9 MG/DL (1.3-2.1); PHOSPHORUS 2.5 MG/DL (2.3-4.7); POTASSIUM 4.7 mmol/L (3.5-5.1)
[2017-12-04] MEDS: MUPIROCIN 2% OINT 22 GM TUBE TOP SCH (09:02)
[2017-12-04] MEDS: PANTOPRAZOLE SODIUM 40 MG SUSPDR.PKT PO SCH (09:02)
[2017-12-04] MEDS: COLLAGENASE OINTMENT 30 GM TUBE TP SCH (09:02)
--- NOTE | 2017-12-04 10:47 | Progress Note ---
DATE: December 04, 2017 Remains in ICU. Tracheostomy and ventilator in place. Blood pressure has been on the low side. Has pressors. PHYSICAL EXAMINATION GENERAL: In no distress, appears frail and wasted. VITALS: Pulse 98, blood pressure 105/58, temperature 99.1. CHEST: Occasional crackles. EXTREMITIES: No edema. SKIN: Dry. Last chest x-ray done 2 days ago showed evidence of minimal fluid overload and pneumonia. ASSESSMENT 1. End-stage renal disease, status post acute tubular necrosis. History of probably underlying diabetic nephropathy. 2. Failure to thrive. 3. Intermittent fluid overload. 4. History of recurrent cardiac arrest. PLAN: Hemodialysis today, 3-1/2-hour run, 2-potassium bath, fluid removal of 2 L or so. Blood flow rate 350 mL per minute and dialysate flow rate 700 mL per minute. Creatinine is low due to decreased muscle mass. Will follow along. The overall prognosis remains poor. Job#: [id number]
[2017-12-04] MEDS ORDERED: HEPARIN SOD (PORCINE) 1000 UNIT/ML SDV IV PRN (11:45)
[2017-12-04] MEDS ORDERED: SODIUM CHLORIDE 0.9% 1000ML 2,000 ML IV PRN (11:45)
[2017-12-04] MEDS: NOREPINEPHRINE INJ 4MG/4ML 8 MG in DEXTROSE 5% 250ML 250 ML IV SCH (17:00)
[2017-12-04] MEDS: VANCOMYCIN 750MG/NS 150ML IVPB 150 ML IV SCH (17:04)
--- NOTE | 2017-12-04 17:14 | Consultation ---
DATE OF CONSULTATION: December 04, 2017 ELECTROPHYSIOLOGY CONSULTATION REASON FOR CONSULTATION: Evaluation for ICD. HISTORY OF PRESENT ILLNESS: Ms. Anderson is a 57-year-old woman with multiple medical problems. I know her since last extended admission at [facility] where she received a permanent pacemaker due to frequent episodes of bradycardia. She also had pulseless electrical activity at that point, but the bradycardia was noted as well. The thought process was a backup pacer will eliminate or at least diminish the rate of which she needs resuscitation due to this drop in the blood pressure and unresponsiveness. She came back to the hospital with unresponsiveness, and the similar episodes were found. There was 1 episode of ventricular tachycardia, and I reviewed the resuscitation log. The episodes of CPR started with pulseless electrical activity and then later progressed to VT after epinephrine and atropine and chest compressions. PAST MEDICAL HISTORY: PEA arrest, bradycardia, end-stage renal disease, klebsiella, C. diff, stage 4 decubitus ulcer, tube feeds in place. SOCIAL HISTORY: No drugs or smoking. FAMILY HISTORY: Negative for sudden or atrial fibrillation. REVIEW OF SYSTEMS: Unable to obtain. Patient intubated. PHYSICAL EXAMINATION VITAL SIGNS: Blood pressure 130/78. Heart rate currently is 70 beats per minute. GENERAL: Patient lying in bed, no apparent distress, a trach in place. Patient is able to communicate, responds to stimuli and can answer with nodding her head. Patient overall is severely malnourished and cachectic. NECK: Has no lymphadenopathy. A trach in place. Thyroid exam is normal. CARDIOVASCULAR: Shows S1, S2. LUNGS: Clear bilaterally. ABDOMEN: Soft, benign. EXTREMITIES: Warm, dry, extremely cachectic, and there is a stage 4 ulcer. NEUROLOGIC: She is able to communicate with nodding her head, moves the extremities. Echo showed EF of 45% to 50%, LVH, moderate MR. Review of CPR episodes showed pulseless electrical activity. Review of pacemaker interrogation showed normal pacing parameters, normal thresholds. ASSESSMENT AND PLAN: A 57-year-old woman with multiple medical problems, multiple sources of infection, extremely cachectic, extremely malnourished, failure to thrive, pulseless electrical activity arrest. She is not a candidate for ICD because the episodes are PEA arrest. In addition to that, she has poor longevity and multiple sources of infection. As far as infectious disease, the lines have changed and I spoke to the infectious disease consulting physician. If the MRSA bacteremia persists, one potential solution is at that point we can offer removing the pacemaker both for palliative and therapeutic reasons, but with the overall clinical picture, failure to thrive, multiple infections, bedridden status, my personal inclination is towards hospice but that needs to be made in conjunction with the team and family. No intervention as far as EP standpoint at this point. Thank you very much for the consultation. Job#: [id number] EV
[2017-12-04] MEDS ORDERED: ACETAMINOPHEN 1000 MG/100 ML 100 ML IV ONE (21:25)
[2017-12-04] MEDS ORDERED: ACETAMINOPHEN 1000 MG/100 ML IV PRN (21:30)
[2017-12-05] VITALS (76 sets, daily range): BP systolic 73–121; BP diastolic 44–77
[2017-12-05] MEDS: METRONIDAZOLE 500MG/NS 100ML 100 ML IV SCH ×3 (03:34→20:41)
[2017-12-05] MEDS: INSULIN LISPRO 100 UNIT/1 ML 3ML VIAL SQ SCH ×4 (05:46→23:12)
[2017-12-05] MEDS: PANTOPRAZOLE SODIUM 40 MG SUSPDR.PKT PO SCH (07:30)
--- NOTE | 2017-12-05 07:35 | Diagnostic Imaging Report ---
EXAM: CHEST SINGLE (PORTABLE) 12/05/2017 at 6:21 AM INDICATION: Pneumonia COMPARISON: 12/02/2017 FINDINGS: Single portable AP view of the chest. Visualized bones, soft tissues and cardiomediastinal silhouette appear unchanged. IMPRESSION: 1. Lines/tubes: Right IJ tunneled hemodialysis catheter and tracheostomy tube are in acceptable position. Single lead left chest wall cardiac device is intact. 2. Small bilateral pleural effusions; right greater than left. Right basilar opacity compatible with resolving infiltrate/atelectasis. Signed by: Dr. Jack Graham DO on 12/05/2017 7:32 AM
[2017-12-05] MEDS: MUPIROCIN 2% OINT 22 GM TUBE TOP SCH (09:00)
[2017-12-05] MEDS: COLLAGENASE OINTMENT 30 GM TUBE TP SCH (09:00)
[2017-12-05] MEDS: NOREPINEPHRINE INJ 4MG/4ML 8 MG in DEXTROSE 5% 250ML 250 ML IV SCH ×2 (19:01→22:09)
[2017-12-05] MEDS ORDERED: SODIUM CHLORIDE 0.9% 250ML 250 ML ONE (20:02)
[2017-12-06] VITALS (88 sets, daily range): BP systolic 74–176; BP diastolic 45–95
[2017-12-06] MEDS ORDERED: ACETAMINOPHEN 1000 MG/100 ML IV PRN (01:15)
[2017-12-06] MEDS: METRONIDAZOLE 500MG/NS 100ML 100 ML IV SCH ×3 (03:42→20:22)
[2017-12-06] MEDS: INSULIN LISPRO 100 UNIT/1 ML 3ML VIAL SQ SCH ×4 (05:41→23:40)
[2017-12-06 06:01] LABS: BASOPHILS # (AUTO) 0.1 (0.0-0.1); BASOPHILS % 0.1 % (0.0-1.0); HEMATOCRIT 33.7 % (34.2-44.1); HEMOGLOBIN 11.2 g/dL (12.0-16.0); LYMPHOCYTES # (AUTO) 1.3 (1.0-3.2); LYMPHOCYTES % 2.2 % (18.0-39.1); MEAN CORPUSCULAR HEMOGLOBIN 31.3 pg (28-32); MEAN CORPUSCULAR HGB CONC 33.2 g/dL (31-35); MEAN CORPUSCULAR VOLUME 94.1 fL (81-99); MONOCYTES # (AUTO) 1.1 (0.2-0.8); MONOCYTES % 1.9 % (4.4-11.3); NEUTROPHILS # (AUTO) 54.4 (2.1-6.9); NEUTROPHILS % 93.1 % (38.7-80.0); PLATELET COUNT 174 x10e3/uL (140-360); RED BLOOD COUNT 3.58 x10e6/uL (3.6-5.1); RED CELL DISTRIBUTION WIDTH 19.2 % (11.7-14.4)
[2017-12-06 06:22] LABS: ANION GAP 18.1 mmol/L (8-16); CALCIUM 8.9 mg/dL (8.4-10.2); CREATININE, SERUM 1.78 mg/dL (0.57-1.11); MAGNESIUM 1.7 MG/DL (1.3-2.1); POTASSIUM 4.1 mmol/L (3.5-5.1)
[2017-12-06 07:35] LABS: BAND NEUTROPHILS % (MANUAL) 6 %; EOSINOPHILS % (MANUAL) 1 % (0-7); LYMPHOCYTES % (MANUAL) 2 % (19-48); MONOCYTES % (MANUAL) 1 % (3.4-9.0); NEUTROPHILS % (MANUAL) 90 % (40-74); PLATELET ESTIMATE ADEQUATE; PLATELET MORPHOLOGY COMMENT MOD EDTA CLUMPING; RBC MORPHOLOGY COMMENT NORMAL
[2017-12-06] MEDS: COLLAGENASE OINTMENT 30 GM TUBE TP SCH (08:50)
[2017-12-06] MEDS: PANTOPRAZOLE SODIUM 40 MG SUSPDR.PKT PO SCH (08:50)
[2017-12-06] MEDS ORDERED: SODIUM CHLORIDE 0.9% 1000ML 2,000 ML IV PRN (11:15)
[2017-12-06] MEDS ORDERED: MANNITOL 25% 12.5GM/50 ML VIAL IV PRN (11:15)
[2017-12-06] MEDS ORDERED: ALBUMIN HUMAN 12.5GM / 50ML IV PRN (11:15)
[2017-12-06] MEDS: VANCOMYCIN 250MG/5ML ORAL SOLN PO SCH ×2 (11:46→17:44)
[2017-12-06] MEDS: VANCOMYCIN 750MG/NS 150ML IVPB 150 ML IV SCH (14:11)
[2017-12-07] VITALS (92 sets, daily range): BP systolic 79–166; BP diastolic 41–118
[2017-12-07] MEDS: METRONIDAZOLE 500MG/NS 100ML 100 ML IV SCH ×3 (04:52→20:05)
[2017-12-07] MEDS: VANCOMYCIN 250MG/5ML ORAL SOLN PO SCH ×4 (05:56→17:39)
--- NOTE | 2017-12-07 06:47 | Diagnostic Imaging Report ---
EXAM: CHEST SINGLE (PORTABLE), AP 1 view INDICATION: Sepsis COMPARISON: AP view of the chest December 05, 2017 FINDINGS: LINES/TUBES: Stable position of right internal jugular vein tunnel hemodialysis catheter, left approach single lead cardiac device and partially visualized tracheostomy tube. LUNGS: Improved aeration of the lungs. PLEURA: Possible trace bilateral pleural effusions. HEART AND MEDIASTINUM: Stable BONES AND SOFT TISSUES: No acute findings. IMPRESSION: Improved aeration of the lungs. Signed by: Dr. Veronica Ortiz M.D. on 12/07/2017 6:44 AM
[2017-12-07] MEDS: INSULIN LISPRO 100 UNIT/1 ML 3ML VIAL SQ SCH ×3 (06:49→17:39)
[2017-12-07 07:46] LABS: BASOPHILS # (AUTO) 0.1 (0.0-0.1); BASOPHILS % 0.3 % (0.0-1.0); EOSINOPHILS # (AUTO) 0.4 (0.0-0.4); EOSINOPHILS % 1.5 % (0.0-6.0); HEMATOCRIT 27.4 % (34.2-44.1); HEMOGLOBIN 9.1 g/dL (12.0-16.0); LYMPHOCYTES # (AUTO) 2.1 (1.0-3.2); LYMPHOCYTES % 8.9 % (18.0-39.1); MEAN CORPUSCULAR HEMOGLOBIN 31.2 pg (28-32); MEAN CORPUSCULAR HGB CONC 33.2 g/dL (31-35); MEAN CORPUSCULAR VOLUME 93.8 fL (81-99); MONOCYTES # (AUTO) 0.9 (0.2-0.8); MONOCYTES % 3.9 % (4.4-11.3); NEUTROPHILS # (AUTO) 19.9 (2.1-6.9); NEUTROPHILS % 84.5 % (38.7-80.0); PLATELET COUNT 182 x10e3/uL (140-360); RED BLOOD COUNT 2.92 x10e6/uL (3.6-5.1); RED CELL DISTRIBUTION WIDTH 18.7 % (11.7-14.4)
[2017-12-07 08:02] LABS: ANION GAP 12.9 mmol/L (8-16); CALCIUM 8.1 mg/dL (8.4-10.2); CREATININE, SERUM 1.19 mg/dL (0.57-1.11)
[2017-12-07 08:04] LABS: POTASSIUM 2.9 mmol/L (3.5-5.1)
[2017-12-07] MEDS ORDERED: POTASSIUM CHLORIDE 20MEQ/100ML 200 ML IV SCH (08:15)
[2017-12-07] MEDS: PANTOPRAZOLE SODIUM 40 MG SUSPDR.PKT PO SCH (09:34)
[2017-12-07] MEDS: COLLAGENASE OINTMENT 30 GM TUBE TP SCH (09:34)
--- NOTE | 2017-12-07 14:08 | Progress Note ---
DATE: December 07, 2017 INFECTIOUS DISEASE PROGRESS NOTE SUBJECTIVE: Ms. Anderson is feeling better today. There is no new complaint. REVIEW OF SYSTEMS HEENT: Negative. PULMONARY: Negative. CARDIAC: Negative. Her white count is down from 58.4 to 23.5 with a hemoglobin of 9. PHYSICAL EXAMINATION GENERAL: She is currently alert and oriented, does not seem to be in acute distress. VITAL SIGNS: Stable. Currently afebrile. HEENT: She does not appear icteric. NECK: Supple. CHEST: Clear. COR: S1 and S2. ABDOMEN: Soft. Bowel sounds present. No tenderness. IMPRESSION AND PLAN 1. Clostridium difficile colitis, presumptive, getting better. 2. Methicillin-resistant Staphylococcus aureus bacteremia, resolved so far, secondary to . 3. End-stage renal disease, on hemodialysis. 4. Coronary artery disease. 5. Debilitated. 1. Status post tracheostomy. 2. History of aspiration. 3. Patient is Do Not Resuscitate. 4. Patient is stable from infectious disease. Job#: [id number] VAS
[2017-12-07] MEDS: MIDODRINE 2.5 MG TAB PO SCH ×2 (17:00→18:00)
[2017-12-07] MEDS: HYDROCODONE BIT/ACETAMINOPHEN 2.5 MG/108MG PER 5 ML SOLUTION PEG PRN (21:10)
[2017-12-08] VITALS (78 sets, daily range): BP systolic 75–161; BP diastolic 46–114
[2017-12-08] MEDS: METRONIDAZOLE 500MG/NS 100ML 100 ML IV SCH ×3 (04:00→20:37)
[2017-12-08] MEDS: VANCOMYCIN 250MG/5ML ORAL SOLN PO SCH ×4 (05:32→17:33)
[2017-12-08] MEDS: INSULIN LISPRO 100 UNIT/1 ML 3ML VIAL SQ SCH ×4 (05:49→17:33)
[2017-12-08] MEDS: MIDODRINE 2.5 MG TAB PO SCH ×2 (07:59→17:00)
[2017-12-08] MEDS: COLLAGENASE OINTMENT 30 GM TUBE TP SCH (07:59)
[2017-12-08] MEDS: PANTOPRAZOLE SODIUM 40 MG SUSPDR.PKT PO SCH (07:59)
--- NOTE | 2017-12-08 13:16 | Progress Note ---
DATE: December 08, 2017 INFECTIOUS DISEASE PROGRESS NOTE SUBJECTIVE: Ms. Anderson is doing better. There is no new complaint. She is alert, oriented and comfortable. PHYSICAL EXAMINATION GENERAL: She is currently alert. VITAL SIGNS: Stable. Currently afebrile. HEENT: She does not appear icteric. NECK: Supple. CHEST: Clear. HEART: S1 and S2. No S3 or S4, no murmur. ABDOMEN: Soft. Bowel sounds present. No tenderness. EXTREMITIES: No edema. LABORATORY DATA: White count 23.5, hemoglobin 9. Creatinine 1.19. IMPRESSION 1. Sepsis on admission, resolved. 2. Bacteremia with Methicillin-resistant Staphylococcus aureus. Continue with IV vancomycin. Recheck her blood cultures. 3. End-stage renal disease. 4. Presumptive Clostridium difficile colitis, better. Plan to continue with the IV vancomycin and to check surveillance plan, may be on 4 weeks of IV antibiotic. Plan on another maybe 5 weeks of oral vancomycin. 5. Diabetes. 6. Arrhythmias. 7. Debilitated. 8. Chronic kidney disease. Will follow. Job#: [id number] [place]
[2017-12-08] MEDS: HYDROCODONE BIT/ACETAMINOPHEN 2.5 MG/108MG PER 5 ML SOLUTION PEG PRN (17:34)
[2017-12-09] VITALS (99 sets, daily range): BP systolic 70–164; BP diastolic 50–103
[2017-12-09] MEDS: VANCOMYCIN 250MG/5ML ORAL SOLN PO SCH ×5 (00:24→23:15)
[2017-12-09] MEDS: INSULIN LISPRO 100 UNIT/1 ML 3ML VIAL SQ SCH ×5 (00:50→23:16)
[2017-12-09] MEDS: METRONIDAZOLE 500MG/NS 100ML 100 ML IV SCH (04:00)
[2017-12-09 06:35] LABS: BASOPHILS # (AUTO) 0.1 (0.0-0.1); BASOPHILS % 0.6 % (0.0-1.0); EOSINOPHILS # (AUTO) 0.2 (0.0-0.4); EOSINOPHILS % 1.1 % (0.0-6.0); HEMATOCRIT 31.2 % (34.2-44.1); HEMOGLOBIN 10.2 g/dL (12.0-16.0); LYMPHOCYTES # (AUTO) 2.6 (1.0-3.2); LYMPHOCYTES % 15.1 % (18.0-39.1); MEAN CORPUSCULAR HEMOGLOBIN 30.4 pg (28-32); MEAN CORPUSCULAR HGB CONC 32.7 g/dL (31-35); MEAN CORPUSCULAR VOLUME 93.1 fL (81-99); MONOCYTES # (AUTO) 1.2 (0.2-0.8); MONOCYTES % 7.1 % (4.4-11.3); NEUTROPHILS # (AUTO) 12.7 (2.1-6.9); NEUTROPHILS % 75.6 % (38.7-80.0); PLATELET COUNT 237 x10e3/uL (140-360); RED BLOOD COUNT 3.35 x10e6/uL (3.6-5.1); RED CELL DISTRIBUTION WIDTH 18.9 % (11.7-14.4)
[2017-12-09 06:56] LABS: ANION GAP 13.6 mmol/L (8-16); CALCIUM 8.1 mg/dL (8.4-10.2); CREATININE, SERUM 1.98 mg/dL (0.57-1.11); POTASSIUM 4.6 mmol/L (3.5-5.1)
[2017-12-09] MEDS: PANTOPRAZOLE SODIUM 40 MG SUSPDR.PKT PO SCH (09:34)
[2017-12-09] MEDS: MIDODRINE 2.5 MG TAB PO SCH ×2 (09:34→17:00)
[2017-12-09] MEDS: COLLAGENASE OINTMENT 30 GM TUBE TP SCH (09:34)
[2017-12-09] MEDS: HYDROCODONE BIT/ACETAMINOPHEN 2.5 MG/108MG PER 5 ML SOLUTION PEG PRN (13:53)
[2017-12-10] VITALS (47 sets, daily range): BP systolic 84–142; BP diastolic 49–90
[2017-12-10] MEDS: INSULIN LISPRO 100 UNIT/1 ML 3ML VIAL SQ SCH ×4 (05:41→23:10)
[2017-12-10] MEDS: VANCOMYCIN 250MG/5ML ORAL SOLN PO SCH ×4 (05:41→23:10)
--- NOTE | 2017-12-10 08:14 | Diagnostic Imaging Report ---
PROCEDURE: A single AP view of the chest. COMPARISON: Patients [facility], DX, CHEST SINGLE (PORTABLE), 12/07/2017, 6:23. INDICATIONS: PNEUMONIA RIGHT LUNG FINDINGS: Lines/tubes: Tracheostomy tube, tunneled right IJ dual-lumen hemodialysis catheter and a left chest wall single lead cardiac device are all in acceptable locations. Lungs: Left basilar opacity may represent atelectasis or aspiration. Pleura: Tiny right pleural effusion. Heart and mediastinum: The heart and the mediastinum are unremarkable. Bones: No acute bony abnormality. IMPRESSION: Left basilar opacity more prominent. Jack Graham D.O. Dictated by: Jack Graham D.O. on 12/10/2017 at 8:15 Electronically approved by: Jack Graham D.O. on 12/10/2017 at 8:15
[2017-12-10] MEDS: PANTOPRAZOLE SODIUM 40 MG SUSPDR.PKT PO SCH (09:53)
[2017-12-10] MEDS: COLLAGENASE OINTMENT 30 GM TUBE TP SCH (09:53)
[2017-12-10] MEDS: MIDODRINE 2.5 MG TAB PO SCH ×2 (09:53→16:30)
[2017-12-10] MEDS: METRONIDAZOLE 500MG/NS 100ML 100 ML IV SCH ×2 (12:08→20:13)
--- NOTE | 2017-12-10 14:57 | Diagnostic Imaging Report ---
PROCEDURE:X-RAY MODIFIED BARIUM SWALLOW COMPARISON:None. INDICATIONS:Aspiration pneumonia DISCUSSION:Fluoroscopic examination was performed in conjunction with speech pathology, during swallowing of a variety of thin and thick liquid consistencies. No penetration or aspiration noted. Pooling in the vallecula and pyriform sinus. Fluoroscopy time: 2 minutes 23 seconds. Total dose: 5.44 mGy CONCLUSION:No penetration or aspiration. Please see the report from speech pathology for complete details. Jack Graham D.O. Dictated by: Jack Graham D.O. on 12/10/2017 at 14:58 Electronically approved by: Jack Graham D.O. on 12/10/2017 at 14:58
[2017-12-10] MEDS ORDERED: SODIUM CHLORIDE 0.9% 250ML 250 ML ONE (20:12)
[2017-12-11] VITALS (43 sets, daily range): BP systolic 75–128; BP diastolic 42–86
[2017-12-11] MEDS: METRONIDAZOLE 500MG/NS 100ML 100 ML IV SCH (03:30)
[2017-12-11] MEDS: INSULIN LISPRO 100 UNIT/1 ML 3ML VIAL SQ SCH ×3 (05:51→17:40)
[2017-12-11] MEDS: VANCOMYCIN 250MG/5ML ORAL SOLN PO SCH ×4 (05:51→23:29)
[2017-12-11 06:28] LABS: ALBUMIN 1.7 g/dL (3.5-5.0); ALBUMIN/GLOBULIN RATIO 0.4 (0.8-2.0); CALCIUM 8.3 mg/dL (8.4-10.2); CREATININE, SERUM 1.78 mg/dL (0.57-1.11)
[2017-12-11] MEDS: PANTOPRAZOLE SODIUM 40 MG SUSPDR.PKT PO SCH (08:09)
[2017-12-11] MEDS: MIDODRINE 2.5 MG TAB PO SCH ×3 (08:09→22:27)
[2017-12-11] MEDS: COLLAGENASE OINTMENT 30 GM TUBE TP SCH (10:09)
[2017-12-11] MEDS ORDERED: VANCOMYCIN 750MG/NS 150ML IVPB 150 ML IV SCH (15:00)
[2017-12-12] VITALS (14 sets, daily range): BP systolic 89–125; BP diastolic 55–81
[2017-12-12] MEDS: INSULIN LISPRO 100 UNIT/1 ML 3ML VIAL SQ SCH ×4 (01:42→17:24)
[2017-12-12] MEDS: VANCOMYCIN 250MG/5ML ORAL SOLN PO SCH ×3 (06:25→17:24)
[2017-12-12] MEDS: MIDODRINE 2.5 MG TAB PO SCH ×2 (09:00→15:00)
[2017-12-12] MEDS: PANTOPRAZOLE SODIUM 40 MG SUSPDR.PKT PO SCH (10:22)
[2017-12-12] MEDS: COLLAGENASE OINTMENT 30 GM TUBE TP SCH (10:22)
[2017-12-12] MEDS: MIDODRINE HCL 5 MG TABLET PO SCH (23:19)
[2017-12-13] MEDS: VANCOMYCIN 250MG/5ML ORAL SOLN PO SCH ×2 (01:18→05:19)
[2017-12-13] MEDS: INSULIN LISPRO 100 UNIT/1 ML 3ML VIAL SQ SCH ×3 (01:23→12:00)
[2017-12-13 04:13] VITALS: BP 128/81
[2017-12-13 07:25] LABS: ALBUMIN/GLOBULIN RATIO 0.4 (0.8-2.0); ANION GAP 10.9 mmol/L (8-16); CALCIUM 8.4 mg/dL (8.4-10.2); CREATININE, SERUM 1.62 mg/dL (0.57-1.11); POTASSIUM 3.9 mmol/L (3.5-5.1)
[2017-12-13] MEDS: PANTOPRAZOLE SODIUM 40 MG SUSPDR.PKT PO SCH (07:30)
[2017-12-13 08:33] VITALS: BP 120/75
[2017-12-13] MEDS: MIDODRINE HCL 5 MG TABLET PO SCH (09:00)
[2017-12-13] MEDS: COLLAGENASE OINTMENT 30 GM TUBE TP SCH (09:00)
--- NOTE | 2017-12-13 10:00 | Discharge Summary ---
SUMMARY ADMIT DIAGNOSES 1. Sepsis secondary to methicillin-resistant Staphylococcus aureus pneumonia. 2. Lozdk-zt-sksison systolic congestive heart failure. 3. Stage 4 sacral decubitus ulcer. 4. Severe protein calorie malnutrition. 5. Underweight. Calculated body mass index 16. 6. Anemia secondary to chronic disease. 7. [id number]-md-[id number] respiratory failure. DISCHARGE DIAGNOSES 1. Sepsis secondary to numerous decubitus ulcers and pneumonia. 2. Right-sided methicillin-resistant Staphylococcus aureus pneumonia. 3. Rlazr-wk-vbhwhpy systolic congestive heart failure. 4. Underweight. Calculated body mass index 18. 5. Severe protein calorie malnutrition. 6. End-stage renal disease. 7. Anemia secondary to chronic disease/chronic kidney disease. HOSPITAL COURSE: A 57-year-old woman who was initially admitted to [facility] because of cardiac arrest. The patient has a history of chronic respiratory failure, which requires her to have a tracheostomy tube in place. It was felt the patient's cardiac arrest was secondary to acute sepsis. During this hospitalization, the patient was found to have sepsis secondary to bilateral MRSA pneumonia, as well as multiple infected decubitus ulcers. The patient's comorbidities include chronic kidney disease, coronary artery disease, and severe protein calorie malnutrition. She is also underweight. The patient never improved clinically during this hospitalization. In fact, she had at least 4 episodes of cardiac arrest during this hospitalization that required advanced cardiac life support initiation. During this hospitalization, the family decided to proceed with do not resuscitate code status, as well as palliative treatment in the form of Hospice care. The patient was actually scheduled to be discharged today under Hospice care. The patient was found apneic, pulseless and unresponsive by nursing staff. I assessed the patient, and no corneal reflex was appreciated. Also, heart and breath sounds could not be auscultated. The patient was pronounced at 0922. Family and attending were notified. MAX JAMESON MD Job#: [id number] [place]
--- NOTE | 2017-12-18 11:17 | Progress Note ---
DATE: December 06, 2017 INFECTIOUS DISEASE PROGRESS NOTE SUBJECTIVE: Ms. Anderson was seen today. She is alert, oriented. She has no complaints. She says she wants to go home. She has loose stools, but today I was contacted because she has a white count of 53,000 but today even the patient looks very comfortable. REVIEW OF SYSTEMS: Unremarkable. PHYSICAL EXAMINATION GENERAL: She is currently alert, oriented, follows commands. VITAL SIGNS: Stable. Afebrile. HEENT: She does not appear icteric. NECK: Supple. CHEST: Clear. HEART: S1 and S2. No S3 or S4, no murmur. ABDOMEN: Soft. Bowel sounds present. No tenderness. EXTREMITIES: No edema. SKIN: No rash. IMPRESSION 1. Worsening leukocytosis, but the patient clinically looked really good. I rechecked the CBC and it is 54,000. So, it could be Clostridium difficile colitis versus ischemic colitis. At any rate, she is doing well. I would suggest to continue with oral vancomycin. 2. Sepsis with Methicillin-resistant Staphylococcus aureus. The repeat blood cultures are negative. 3. Chronic kidney disease. 4. Malnutrition, cachectic patient, multiple medical issues, status post cardiac arrest. The plan is to continue the IV vancomycin for at least 2 weeks, continue the oral vancomycin probably 3 to 4 weeks. Recheck CBC in the morning and will follow. Job#: [id number] KENAN
== END 2017-12-13 21:02 | disposition expired | DRG 870 ==
LOC: ER 22:09 → ERHOLD 11-28 02:56 → ICU 11-28 05:49 → IMCU 12-12 17:19
PROC: 5A1935Z Respiratory Ventilation, Less than 24 Consecutive Hours (ICD-10-PCS; principal; 2017-11-28)
PROC: 5A02215 Assistance with Cardiac Output using Pulsatile Compression, Continuous (ICD-10-PCS; 2017-11-28)
PROC: 5A1D70Z Performance of Urinary Filtration, Intermittent, Less than 6 Hours Per Day (ICD-10-PCS; 2017-11-29)
PROC: 30233N1 Transfusion of Nonautologous Red Blood Cells into Peripheral Vein, Percutaneous Approach (ICD-10-PCS; 2017-12-01)
PROC: 5A1955Z Respiratory Ventilation, Greater than 96 Consecutive Hours (ICD-10-PCS; 2017-12-02)
DX: A41.02 Sepsis due to Methicillin resistant Staphylococcus aureus (principal); N17.0 Acute kidney failure with tubular necrosis; J96.21 Acute and chronic respiratory failure with hypoxia; J69.0 Pneumonitis due to inhalation of food and vomit; E43 Unspecified severe protein-calorie malnutrition; I50.23 Acute on chronic systolic (congestive) heart failure; L89.154 Pressure ulcer of sacral region, stage 4; N18.6 End stage renal disease; Z99.11 Dependence on respirator [ventilator] status; I50.20 Unspecified systolic (congestive) heart failure; I13.2 Hypertensive heart and chronic kidney disease with heart failure and with stage 5 chronic kidney disease, or end stage renal disease; N10 Acute pyelonephritis; Z68.1 Body mass index [BMI] 19.9 or less, adult; A04.72 Enterocolitis due to Clostridium difficile, not specified as recurrent; Z93.0 Tracheostomy status; R13.10 Dysphagia, unspecified; E11.22 Type 2 diabetes mellitus with diabetic chronic kidney disease; Z99.2 Dependence on renal dialysis; R65.20 Severe sepsis without septic shock; I25.10 Atherosclerotic heart disease of native coronary artery without angina pectoris; Z93.1 Gastrostomy status; Z95.0 Presence of cardiac pacemaker; E83.42 Hypomagnesemia; E87.6 Hypokalemia; Z74.01 Bed confinement status; R62.7 Adult failure to thrive; E11.21 Type 2 diabetes mellitus with diabetic nephropathy; Z88.5 Allergy status to narcotic agent; D64.9 Anemia, unspecified; Z66 Do not resuscitate; D63.1 Anemia in chronic kidney disease; B96.1 Klebsiella pneumoniae [K. pneumoniae] as the cause of diseases classified elsewhere; B96.5 Pseudomonas (aeruginosa) (mallei) (pseudomallei) as the cause of diseases classified elsewhere; L89.100 Pressure ulcer of unspecified part of back, unstageable; L89.610 Pressure ulcer of right heel, unstageable; L89.101 Pressure ulcer of unspecified part of back, stage 1; Z51.5 Encounter for palliative care
CPT/HCPCS: 31500; 36415; 36555; 36600; 70450; 71045; 74230; 76882; 80048; 80053; 80061; 81001; 82150; 82550; 82553; 82805; 82948; 83605; 83690; 83735; 83880; 84100; 84443; 84484; 85007; 85025; 85027; 85610; 85730; 86704; 86850; 86900; 86920; 87040; 87070; 87071; 87086; 87186; 87205; 87350; 87493; 92950; 93005; 93306; 94003; 96367; 96372; 96375; 97606; 99285; J0171; J0692; J1450; J1644; J2150; J2185; J2270; J2405; J2543; J3370; J3480; J7030; J7050; J7799; P9016